=== PATIENT | male | born 1985 | race Caucasian/White ===

== ENCOUNTER 2024-09-19 09:23 | Emergency (ER) | payer OTHER ==
[~2024-09-19] VITALS: Ht 180.3 cm; Wt 111.8 kg
[2024-09-19] MEDS: ketorolac trometh 15mg/ml vial 15 MG/ML ML IM ONE (11:45)
[2024-09-19] MEDS ORDERED: NAPR-996 PO (11:58)
[2024-09-19 12:03] VITALS: BP 140/80; PULSE 88; RESP 16; TEMP 98.5; O2SAT 99
== END 2024-09-19 12:04 | disposition home or self-care (01) ==
LOC: ER 09:24
DX: M54.50 Low back pain, unspecified (principal); Z79.899 Other long term (current) drug therapy
CPT/HCPCS: 72100; 96372; 99283; J1885

== ENCOUNTER 2025-08-03 05:33 | Emergency (ER) | payer MEDICAID ==
[~2025-08-03] VITALS: Ht 182.9 cm; Wt 93.2 kg
[~2025-08-03 05:33] MED LIST: BUPR100T15 PO; FOLI1TAB27 PO; IBUP-1984 PO; METH-798 PO; METO-395 PO; NALT50TA5 PO; QUET25TA36 PO
[2025-08-03 06:18] LABS: LEUKOCYTE ESTERASE ,URINE NEGATIVE (Neg); NITRITES, URINE NEGATIVE (Neg); OCCULT BLOOD,URINE NEGATIVE (Neg)
[2025-08-03 06:22] LABS: UA COLLECTION TYPE CLN CATCH MIDSTREAM
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
[2025-08-03] MEDS ORDERED: NO HOME MEDS (06:49)
[2025-08-03] MEDS: haloperidol lactate 5mg/ml inj IM ONE (07:15)
[2025-08-03 07:34] LABS: URINE AMPHETAMINE SCREEN NEGATIVE (Neg); URINE BARBITUATE SCREEN NEGATIVE (Neg); URINE BENZODIAZEPINES SCREEN NEGATIVE (Neg); URINE CANNABINOID SCREEN POSITIVE (Neg); URINE COCAINE SCREEN NEGATIVE (Neg); URINE METHADONE SCREEN NEGATIVE (Neg); URINE OPIATE SCREEN NEGATIVE (Neg); URINE PHENCYCLIDINE SCREEN NEGATIVE (Neg)
[2025-08-03 07:52] LABS: MEAN PLATELET VOLUME 7.7 FL (7.4-10.4); RED CELL DISTRIBUTION WIDTH 12.5 % (11.5-14.5)
[2025-08-03 08:18] LABS: CREATININE 0.95 MG/DL (0.60-1.10); ETHANOL 178 MG/DL (<10); TOTAL CARBON DIOXIDE 21.2 MMOL/L (24-32); eCRCL 112 ML/MIN; eGFR 87 ML/MIN
[2025-08-03] MEDS: POTASSIUM BICARB 20meq eff tab 20 MEQ TABLET.EFF PO STA (11:05)
[2025-08-04] MEDS: HYDROcodone/acetaminophen 10/325mg tab PO STA (05:22)
[2025-08-04] MEDS: NICOTINE POLACRILEX 2 MG LOZENGE BC PRN (16:34)
--- NOTE | 2025-08-05 01:48 | RADIOLOGY REPORT ---
EXAM: CT CT LUMBAR SPINE HISTORY: pain, hx of recent sx COMPARISON: DI LUMBAR SPINE LIMITED on DOS: 09/19/24 CTDIvol 33 mGy, DLP 1074 mGy*cm. TECHNIQUE: Multiple axial CT images of the spine were obtained using bone algorithm. Axial and coron al reformatting was done. Bone and soft tissue windows were reviewed. FINDINGS: No CT evidence of definite acute fracture, spinal dislocation, or significant appearing acute subluxa tion is seen. The visualized paraspinal soft tissues are grossly unremarkable. Posterior spinal fixation at L3-L4 with disc spacer and right vertebral body screws. Advanced degene rative change in the lumbar spine such as: L2-L3: The spinal canal and foramina are patent. L3-L4: Disc spacer with intact hardware. Posterior disc osteophyte complexes causing [id number] spinal canal and foraminal narrowing. Trace retrolisthesis. L4-L5: Posterior disc osteophyte complex and facet arthropathy is causing moderate to severe bilatera l foraminal narrowing and mild spinal canal narrowing. L5-S1: [id number] bilateral foraminal narrowing by the disc osteophyte complex and facet arth ropathy. IMPRESSION: 1. No definite CT evidence of acute fracture or dislocation of the bony lumbar spine. 2. Multilevel degenerative change in the lumbar spine with posterior fixation at L3-L4 as described.
[2025-08-05] MEDS: nicotine 21mg patch - 24 hr TD SCH (08:37)
[2025-08-05] MEDS: OLANZapine 5mg rapidly disint. tablet PO ONE (18:49)
[2025-08-06 06:15] VITALS: BP 148/89; PULSE 86; RESP 18; O2SAT 97
[2025-08-06 08:03] VITALS: TEMP 97.9
== END 2025-08-06 08:08 | disposition home or self-care (01) ==
LOC: ER 05:34
DX: F29 Unspecified psychosis not due to a substance or known physiological condition (principal); F10.229 Alcohol dependence with intoxication, unspecified; E87.6 Hypokalemia; F20.9 Schizophrenia, unspecified; Y90.6 Blood alcohol level of 120-199 mg/100 ml; Z20.822 Contact with and (suspected) exposure to COVID-19
CPT/HCPCS: 36415; 80048; 80305; 80320; 81003; 84443; 85025; 87811; 96372; 99291; J1200; J1630; J2060